=== PATIENT | male | born 1990 | race Caucasian/White ===

== ENCOUNTER → 2018-06-11 | Outpatient (CLI) | payer OTHER ==
[~2018-06-11] MED LIST: CONRAY-43 43% 50ML VIAL (Q9960) As Ordered ONE; PROHANCE 279.3MG/ML 5ML VIAL (A9576) As Ordered ONE
--- NOTE | 2018-06-11 09:22 | REP ---
MRI LEFT SHOULDER WITH AND WITH CONTRAST ARTHROGRAM: 06/11/2018. Technique: Coronal T1 with coronal, sagittal and axial fat suppressed T2 sequences followed by gadolinium arthrogram injection and axial 3-D Bon[place] with coronal, axial and sagittal fat suppressed T1, coronal fat suppressed and an ABER fat suppressed T1 sequence provided. Clinical history: Left shoulder pain. Evaluate for impingement or internal derangement. Findings: There are no prior studies. The AC joint shows no significant hypertrophic change or indentation of the musculotendinous junction. There is a small peripheral acromial spur. This contributes to bursal surface fraying on the supraspinatus. There is some tendinopathy tendinosis of the supraspinatus with linear intrasubstance signal within the tendon at its insertional footprint, however I do not see a full-thickness tear, retraction of the tendon nor atrophy of the muscle belly. A couple of small subcortical cysts greater tuberosity humeral head likely related to posterior impingement from the acromion. The subscapularis tendon shows some thickening and increased signal at its insertion on the lesser tuberosity but no full-thickness tendon tear or atrophy of that muscle. Infraspinatus and teres minor tendons and muscles were intact. Biceps tendon is seated in its groove. The coracoclavicular and coracohumeral ligaments were intact. No glenohumeral joint effusion identified. The bony coracoid intact. After gadolinium arthrogram injection, no communication to the subacromial or subdeltoid bursa. There is no loose body evident. There is a sublabral foramen superiorly without definite tear. Biceps labral junction was grossly intact. There is a type 2 anterior capsular insertion on the anterior glenoid. No anterior or posterior labral tear is evident. There are no other significant findings. Impression: 1. Tendinosis tendinopathy of the supraspinatus with intrasubstance linear signal within that may reflect tendon split but no full-thickness tear, retraction of the tendon or atrophy of the muscle belly. There is some bursal surface fraying related to a peripheral acromial spur. 2. Some tendinopathy of the subscapularis near its insertion to a lesser extent the supraspinatus but no tendon tear or atrophy of the muscle. 3. Coracoclavicular and coracohumeral ligaments, infraspinatus and teres minor tendons and muscles were all intact. 4. Biceps tendon seated in its groove in the biceps labral complex and interarticular portion of the biceps normal. 5. A paralabral sulcus and superior labrum without definite superior, anterior or posterior labral tear. No loose body. Electronically Signed by Jin Fragoso MD 06/11/2018 09:30 A
--- NOTE | 2018-06-11 17:55 | REP ---
Procedure: Left shoulder arthrogram The procedure was performed under the direct supervision of Dr. Fragoso. History: Left shoulder pain The benefits and risks including but not limited to pain, infection, bleeding and anaphylaxis were explained to the patient and informed consent was obtained. Technique: The left glenohumeral joint space was localized using fluoroscopic guidance. The skin was prepped and draped in a sterile fashion. 1% lidocaine was used as a local anesthetic. Using fluoroscopic guidance a 22 gauge spinal needle was inserted and advanced into the joint. 0.5 ml of Conray 43 was injected to verify placement. 11 ml of a solution containing 20 ml of sterile saline and 0.15 ml of ProHance was injected into the joint. The needle was removed and the patient was taken to MRI for postprocedural imaging. The the patient tolerated the procedure well and there were no immediate complications. Less than 6 seconds of fluoro time was utilized for this procedure. Reviewed by DHIRAJ Sullivan 06/11/2018 04:55 P Electronically Signed by Jin Fragoso MD 06/11/2018 05:46 P
== END ==
LOC: M RADPRO 06:20
PROVIDERS: ATTEND Nurse Practitioner
DX: M75.80 Other shoulder lesions, unspecified shoulder (principal); M25.512 Pain in left shoulder; R20.1 Hypoesthesia of skin
CPT/HCPCS: 23350; 73223; 77002; A9576; Q9960